=== PATIENT | female | born 1990 | race Caucasian/White ===

== ENCOUNTER 2017-06-10 09:14 | Outpatient (CLI) | payer OTHER | END 2017-06-10 09:15 | disposition home or self-care (01) | LOC: BICRAD 09:14 | PROVIDERS: ATTEND Family Medicine | DX: M54.5 Low back pain (principal) | CPT/HCPCS: 72100 ==

== ENCOUNTER 2017-07-20 07:49 | Outpatient (CLI) | payer OTHER ==
--- NOTE | 2017-07-20 09:49 | ULT ---
RIGHT UPPER QUADRANT ULTRASOUND: Date: 07-20-17 Comparison: None. History: Nausea. Technique: Multiplanar grayscale sonographic imaging of the right upper quadrant obtained. FINDINGS: No focal liver lesion or intrahepatic biliary dilation is seen. The pancreas is obscured by bowel gas. The right kidney measures 10.5 cm in craniocaudal dimension a nd demonstrates no stone, hydronephrosis or mass. CBD measures in the 5 mm range, within normal limit s. No gallbladder wall thickening or pericholecystic fluid. No gallstones are seen. The unclaimed property manager repo rts a negative Martinez sign. IMPRESSION: Unremarkable right upper quadrant ultrasound. POS: [facility]
== END 2017-07-20 07:50 | disposition home or self-care (01) ==
LOC: ULT 07:49
PROVIDERS: ATTEND Family Medicine
DX: R11.0 Nausea (principal)
CPT/HCPCS: 76705

== ENCOUNTER 2018-06-24 20:22 | Emergency (ER) | payer OTHER ==
[2018-06-24] MEDS ORDERED: predniSONE 20 MG TAB ONE (22:32)
== END 2018-06-25 00:16 | disposition home or self-care (01) ==
LOC: ERS 20:22
DX: L23.6 Allergic contact dermatitis due to food in contact with the skin (principal); J45.909 Unspecified asthma, uncomplicated
CPT/HCPCS: 99283; J7506

== ENCOUNTER 2018-06-26 04:18 | Emergency (ER) | payer OTHER ==
[2018-06-26] MEDS ORDERED: diphenhydrAMINE 50 MG/ML VIAL ONE (04:43)
[2018-06-26] MEDS ORDERED: methylPREDNISolone Sod Succ/PF 125 MG/2 ML VIAL ONE (04:43)
[2018-06-26] MEDS ORDERED: Famotidine/PF 20 mg/2ml Vial ONE (04:43)
[2018-06-26] MEDS ORDERED: Water For Inject, Bacteriostat 30 ML ONE (04:44)
== END 2018-06-26 06:03 | disposition home or self-care (01) ==
LOC: SCSER 04:18
DX: L50.0 Allergic urticaria (principal); E03.9 Hypothyroidism, unspecified; K21.9 Gastro-esophageal reflux disease without esophagitis; Z79.899 Other long term (current) drug therapy; J45.909 Unspecified asthma, uncomplicated
CPT/HCPCS: 96361; 96374; 96375; J1200; J2930; S0028